=== PATIENT | male | born 1965 | race Caucasian/White ===

== ENCOUNTER 2018-07-04 08:09 | Observation (INO) ==
--- NOTE | 2018-06-23 11:59 | Anesthesiology Consultation ---
Date of Service June 23, 2018 Assessment & Plan (1) Encounter for pre-operative examination: Chart Review Chart Review: Acceptable Risk for Surgery and Patient seen in Pre Admission Testing Teaching & Discussion Instructed NPO after midnight before surgery, except medications with 15 cc of water. Medication instructions provided according to the PAT guidelines. History Surgery Operation Date: 07/04/18 11:40 Proposed Procedures p C5-C6 Cervical Disc Arthroplasty - Ismael Bradford DO Height/Weight Height: 5 ft 10 in Weight: 94.3 kg Allergies Allergy/AdvReac Type Severity Reaction Status Date / Time No Known Allergies Allergy Verified 06/21/18 15:39 Medications Home Medications Medication Instructions Recorded Confirmed Last Taken aspirin [Aspir-81] 81 mg PO DAILY 06/21/18 06/21/18 06/21/18 bupropion HCl [Wellbutrin SR] 150 mg PO BID 06/21/18 06/21/18 06/21/18 escitalopram oxalate [Lexapro] 10 mg PO QPM 06/21/18 06/21/18 06/20/18 gemfibrozil 600 mg PO BID 06/21/18 06/21/18 06/21/18 metformin 500 mg PO BID 06/21/18 06/21/18 06/21/18 omega 7-nyt-fve-fish oil [Fish Oil] 1 cap PO BID 06/21/18 06/21/18 06/21/18 rosuvastatin [Crestor] 20 mg PO QAM 06/21/18 06/21/18 06/21/18 semaglutide [Ozempic] 1 dose SUBCUT UD 06/21/18 06/21/18 06/17/18 Past Medical History Medical History Anxiety WITH LARGE CROWDS OR LOTS OF ACTIVITY Depression Diabetes Hernia Herniated cervical disc C5-6 High triglycerides Irregular bowel habits CONSTIPATION/DIARRHEA - PROBLEM FOR 20 YRS Spinal stenosis Past Family History Family History Other Family history of heart disease Past Surgical History Surgical History History of abdominal surgery x3 as child for tumor ages 5, 10 & 12 History of carpal tunnel surgery of right wrist History of cholecystectomy History of colonoscopy History of colostomy 1995 RESULT OF CONSTRUCTION ACCIDENT History of colostomy reversal History of lipoma BACK OF NECK Past Anesthesia History No Hx of Anesthesia Complications and No Family Hx of Anesthesia Complications History of PONV No Motion Sickness Screening History of Motion Sickness: No STOP BANG Total 4 Social History Smoking Status: Never smoker Do You Dip or Chew Tobacco: Yes (1 CAN EVERY 2 DAYS - ADVISED NPO) Hx Alcohol Use: No Hx Substance Use: No substance use type: does not use Exercise / Class Metabolic Activity II 4-5 Yardwork/Stairs/Walk up hill (mild SOB with stairs 2/2 deconditioning) Review of Systems Pt denies any recent chest pain, shortness of breath, palpitations, cough, fever or URI. Physical Exam Vital Signs BP: 120/82 P: 83bpm SPO2: 97% RA T: 98.2 R: 18 ENMT Mouth: no dental restorations, no chipped teeth and no loose teeth Thyromental Distance: < 3.5 Finger Breadths (3) Mallampati Class: II Neck normal visual inspection and + limited neck extension (mildly limited 2/2 pain) Respiratory normal respiratory effort Auscultation: lungs clear to auscultation bilaterally Cardiovascular Rate/Rhythm: regular rate and regular rhythm Heart Sounds: no murmur Vessels: no carotid bruit Testing Electrocardiogram Date: 06/23/18 Findings: + NSR @ (78) Chest X-Ray Date: 06/23/18 Findings: + NAD Laboratory Results 06/23/18 11:35 06/23/18 11:35 PT 9.9 Seconds (9.0-12.0) 06/23/18 11:35 INR 1.0 (0.9-1.1) 06/23/18 11:35 APTT 28.6 Seconds (21.0-31.0) 06/23/18 11:35
--- NOTE | 2018-06-23 12:03 | PAT Medication Instructions ---
Medication Instructions Date of Service June 23, 2018 Home Medications aspirin [Aspir-81] 81 mg PO DAILY bupropion HCl [Wellbutrin SR] 150 mg PO BID escitalopram oxalate [Lexapro] 10 mg PO QPM gemfibrozil 600 mg PO BID metformin 500 mg PO BID omega 6-rlx-avf-fish oil [Fish Oil] 1 cap PO BID rosuvastatin [Crestor] 20 mg PO QAM semaglutide [Ozempic] 1 dose SUBCUT UD Continue as directed semaglutide [Ozempic] 1 dose SUBCUT UD ASK your surgeon for instructions aspirin [Aspir-81] 81 mg PO DAILY STOP taking 2 weeks before surgery omega 0-rah-xrl-fish oil [Fish Oil] 1 cap PO BID If surgery is within 2 weeks, stop taking as soon as possible. STOP taking 24 hours before surgery gemfibrozil 600 mg PO BID DO NOT take the morning of surgery metformin 500 mg PO BID Take morning of surgery With a small sip of water, OTHERWISE NOTHING TO EAT OR DRINK AFTER MIDNIGHT: bupropion HCl [Wellbutrin SR] 150 mg PO BID rosuvastatin [Crestor] 20 mg PO QAM Take evening before surgery bupropion HCl [Wellbutrin SR] 150 mg PO BID escitalopram oxalate [Lexapro] 10 mg PO QPM metformin 500 mg PO BID Other Notes If you have any questions please call us at [phone] or [phone] or [phone] or [phone]
--- NOTE | 2018-06-23 12:28 | XRay Report ---
XR chest Pre-admission PA/Lat HISTORY: 52 years-old Male pat preoperative exam. No acute chest complaints COMPARISON: None available TECHNIQUE: PA and lateral views of the chest FINDINGS: Cardiac mediastinal and hilar silhouettes are within normal limits. No pneumothorax, pleural effusion , focal airspace consolidation or overt pulmonary edema. Bones of the chest appear grossly intact. IMPRESSION: No acute process. The above report was generated using voice recognition software. It may contain grammatical, syntax o r spelling errors. Electronically signed by: Diaz Jimenez M.D. 06/23/2018 12:27 PM
[2018-06-23 12:31] LABS: Basophils # (auto) 0.02 K/uL (0-0.2); Basophils % (auto) 0.3 %; Eosinophils # (auto) 0.14 K/uL (0-0.5); Eosinophils % (auto) 1.9 %; Hematocrit (blood only) 40.8 % (42-52); Hemoglobin 13.9 g/dL (14.0-18.0); Immature Granulocytes # (auto) 0.02 K/uL (0.00-0.02); Immature Granulocytes % (auto) 0.3 %; Lymphocytes # (auto) 2.38 K/uL (1.2-3.4); Lymphocytes % (auto) 33.1 %; Mean Corpuscular Hgb Conc 34.1 g/dL (32-36); Mean Corpuscular Volume 88.1 fL (80-100); Mean Platelet Volume 9.6 fL (7.4-10.4); Monocytes % (auto) 8.3 %; Neutrophils # (auto) 4.03 K/uL (1.4-6.5); Neutrophils % (auto) 56.1 %; Platelet Count 278 K/uL (130-400); RDW Coefficient of Variation 13.2 % (11.5-14.5); RDW Standard Deviation 42.1 fL (36.4-46.3); Red Blood Count 4.63 M/uL (4.7-6.1); White Blood Count 7.19 K/uL (4.8-10.8)
[2018-06-23 12:47] LABS: BUN Creatinine Ratio 17.7 (10-20); Creatinine Clr Calc Pharmacy 97.8 ml/min; Est GFR (African American) 114.5; Est GFR (Non-African American) 98.8; Potassium 4.2 mmol/L (3.5-5.1)
[2018-06-23 12:54] LABS: Partial Thromboplastin Ratio 1.1; Partial Thromboplastin Time 28.6 Seconds (21.0-31.0); Prothrombin Time 9.9 Seconds (9.0-12.0)
--- NOTE | 2018-07-01 15:05 | History and Physical Report ---
DATE OF ADMISSION: 07/04/2018 CHIEF COMPLAINT: Neck pain, arm pain, trapezius pain associated weakness to the upper extremities, progressive. Kvng is delightful, progressive cervical radiculopathy associated weakness. Works at [employer]. He is here for elective surgery. It is an anterior arthroplasty C5-C6 cervical spine. PAST MEDICAL HISTORY: Diabetes, anxiety, high cholesterol. No hypertension, COPD, or carcinoma. PAST SURGICAL HISTORY: Tumor resection, colonoscopy, neck surgery. ALLERGIES: Negative. FAMILY HISTORY: Diabetes, stroke. SOCIAL HISTORY: He is , 5 children. Rarely drinks. No tobacco. REVIEW OF SYSTEMS: Twelve system review negative fevers, sweats, chills. Ear, nose and throat negative. No chest pain, palpitations, asthma, wheezing. No nausea, vomiting, urgency, frequency. He does have diabetes. MEDICATIONS: Metformin, aspirin, fish oil, Wellbutrin, Lexapro, Crestor. PHYSICAL EXAMINATION: GENERAL: 5' 11", 218, in moderate distress. He has a significant difficulty with upper extremity. VITAL SIGNS: Blood pressure 130/80, pulse 80, respirations 16. LUNGS: Clear to auscultation. No rales, rhonchi, wheezing. ABDOMEN: Soft, nontender. CARDIAC: Normal S1, S2, no S3. LUNGS: Clear to auscultation. No rales, rhonchi, wheezing. UPPER EXTREMITIES: His upper extremity examination was impressive. He has a Spurling maneuver. He has Lhermitte sign. He has weakness, numbness and tingling, weakness of biceps function and triceps function, protection analyst strength as well. Absent reflexes, but no hyperreflexia. IMAGES: Demonstrate a large herniation C5-C6 cervical spine. PLAN: Anterior cervical disc arthroplasty C5-C6 cervical spine.
[~2018-07-04 08:09] MED LIST: CEFAZOLIN 2000MG 2,000 MG/15 ML SYR IV SCH; LR 15ML/HR IV SCH; LR 60ML/HR IV SCH; SODIUM CHLORIDE 0.9% 1000ML IV SCH
[2018-07-04] MEDS ORDERED: ePHEDrine sulfate 50 MG/ML AMP IV PRN ×2 (09:39→12:21)
[2018-07-04] MEDS ORDERED: ATROPINE SULFATE 0.1 MG/ML 10ML SYR IV PRN ×2 (09:39→12:21)
[2018-07-04] MEDS ORDERED: BUPIVACAINE/EPINEPHRINE 0.5% MPF 1:200,000 30 ML VIAL ONE (09:40)
[2018-07-04] MEDS ORDERED: THROMBIN FOR SOLN 20000 UNIT KIT ONE (09:41)
[2018-07-04] MEDS ORDERED: BACITRACIN INJ 50,000 UNIT VIAL ONE (09:41)
[2018-07-04] MEDS ORDERED: GELATIN SPONGE SZ 100 ONE (09:41)
[2018-07-04] MEDS ORDERED: PROPOFOL IV EMULSION 10 MG/ML 20 ML VIAL IV ONE (09:50)
[2018-07-04] MEDS ORDERED: MIDAZOLAM HCL 1 MG/ML 2ML VIAL ONE (09:50)
[2018-07-04] MEDS ORDERED: ROCURONIUM BROMIDE 10 MG/ML 5 ML VIAL ONE (09:50)
[2018-07-04] MEDS ORDERED: fentaNYL citrate 100 MCG/2 ML VIAL ONE ×3 (09:50→10:48)
--- NOTE | 2018-07-04 09:59 | History & Physical Bridge Note ---
Date of Service July 04, 2018 History & Physical Bridge Note I have examined the patient, reviewed the History & Physical and in the interval since the performance of the History & Physical I have noted the following changes of clinical significance: no changes noted
[2018-07-04] MEDS ORDERED: ONDANSETRON INJ 2 MG/ML 2 ML VIAL ONE (10:33)
[2018-07-04] MEDS ORDERED: DEXAMETHASONE SOD INJ 4 MG/ML VIAL ONE (10:33)
--- NOTE | 2018-07-04 11:33 | Post Operative Brief Note ---
Immediate Post Op Note v1 Date of Surgery July 04, 2018 Pre & Post Diagnosis Operation Date: 07/04/18 10:30 Pre-Op Diagnosis: Disc Herniation Post-Op Diagnosis: Disc Herniation Procedure Operation Date: 07/04/18 10:30 Actual Procedures p C5-C6 Cervical Disc Arthroplasty(Not Applicable) - Ismael Bradford DO Surgeon Ismael Bradford DO Educational Manager raheem Estimated Blood Loss 5 Findings Consistent with Post-Op Diagnosis Drains Jabari Drain
[2018-07-04] MEDS ORDERED: fentaNYL citrate 100 MCG/2 ML VIAL IV PRN (12:21)
[2018-07-04] MEDS ORDERED: LORazepam 0.5 MG/1 ML VIAL IV PRN (13:47)
[2018-07-04] MEDS ORDERED: OXYCODONE HCL IR 5 MG TAB (IMMEDIATE RELEASE) PO PRN (13:47)
[2018-07-04] MEDS ORDERED: NALOXONE HCL 0.4 MG/1 ML VIAL/CARP IV PRN (13:47)
[2018-07-04] MEDS ORDERED: RACEPINEPHRINE 2.25% NEBU SOLN 0.5 ML VIAL INH PRN (13:47)
[2018-07-04] MEDS ORDERED: MAGNESIUM HYDROXIDE SUSP 30 ML UDC PO PRN (13:47)
[2018-07-04] MEDS ORDERED: ONDANSETRON INJ 2 MG/ML 2 ML VIAL IV PRN (13:47)
[2018-07-04] MEDS ORDERED: SEMAGLUTIDE SQ SCH (13:47)
[2018-07-04] MEDS ORDERED: ACETAMINOPHEN 1,000 MG/100 ML VIAL IV PRN (13:47)
[2018-07-04] MEDS ORDERED: HYDROmorphone INJ 0.5 MG/0.5 ML SYR IV PRN (13:47)
[2018-07-04] MEDS ORDERED: PHARMACY GLYCEMIC MGMT CONSULT PRN (14:19)
--- NOTE | 2018-07-04 14:19 | Fluoroscopy Report ---
Cervical SPINE, INTRAOPERATIVE FLUOROSCOPY HISTORY: C5-C6 arthroplasty. FLUOROSCOPY TIME: 15 seconds. FINDINGS: Intraoperative fluoroscopy was provided for the cervical spine. 4 fluoroscopic spot images of the cervical spine demonstrate a C5-C6 disc spacer. The hardware appears in good position. IMPRESSION: Fluoroscopy provided for a C5-C6 arthroplasty. Electronically signed by: Solitario Lyn M.D. 07/04/2018 2:17 PM
[2018-07-04] MEDS: SODIUM CHLORIDE 0.9% 1000ML 1,000 ML IV SCH ×2 (14:34→22:45)
--- NOTE | 2018-07-04 15:05 | Pharmacy Report ---
Glycemic Control Consultation - Date of Service July 04, 2018 - Scope Scope: Glycemic Pharmacist consulted by Dr Carney on 07/04/18 for glycemic control and to write orders per [facility] inpatient glycemic control protocol - Objective Weight: 94.347 kg Accuchecks BSG (last 24hrs): 07/04/18 07/04/18 08:27 12:05 POC Glucose 125 H 118 H - Recent Pertinent Medications Outpatient Anti-diabetic Regimen: * Ozempic SC weekly, Metformin 500mg BIDM * A1c ordered for 07/05/18 Risk Factors for Insulin Resistance: * Steroids: IV DXM 8mg perioperatively * Recent Surgery: POD:0 * Diet:NPO - Assessment & Plan Assessment & Plan: ASSESSMENT: * Mr. Cleveland is a 52 yo M unknown to the pharmacy glycemic service. He is maintained on Ozempic and Metformin as an outpt. I was not able to find an A1C in his chart, so I am unsure of his degree of insulin resistance. * PMHx consistent with DM-II, HLD, COPD. * He was given 8mg IV DXM perioperatively. He is currently NPO. Most recent BSGs 125,118mg/dL PLAN FOR INPATIENT GLYCEMIC CONTROL: * Holding outpatient oral diabetes medications * Basal insulin * Lantus dose to be based on whether he is ordered a diet and future BSGs * Bolus insulin * NovoLog per scale ACHS or Q6hrs while NPO * Goal Range: Low 110 mg/dL - High 140 mg/dL * Correction Factor: 15 mg/dL/unit * Nutritional / Prandial insulin per carb ratio of 1 unit per 6 grams CHO consumed * Please note that the plan above was derived based on current level of insulin resistance and hospital stress. These recommendations are appropriate for inpatient admission only. Plan of care upon discharge will need to be reassessed to avoid potential outpatient hypo/hyperglycemia. Thank you.
--- NOTE | 2018-07-04 15:09 | Operative Report ---
DATE OF OPERATION: 07/04/2018 PREOPERATIVE DIAGNOSIS: Cord compression, cervical spine, C5-C6. POSTOPERATIVE DIAGNOSIS: Cord compression, cervical spine, C5-C6. PROCEDURE: Include anterior cervical disc arthroplasty, C5-C6. SURGEON: Ismael Bradford DO DYER HELPER: Marquis Carney PA-C. COMPLICATIONS: No complications. DESCRIPTION OF PROCEDURE: The patient was taken to the operating room, a general intubated anesthetic provided to the patient, kept supine, scrubbed, prepped and draped sterile. We made a transverse skin incision dissecting the soft tissue. It was a classic Kirkland-Maloney approach to the cervical spine. We got down to the C5-C6 interspace fairly readily. We took the longus colli off about 3 mm left to right. We incised the disc. We piecemealed all disc material. I was able to get back on to the nerve into the cord, receiving 2 or 3 free fragments. I perceived to be disc material off the nerve root. I believe the disc to be evacuated of any type of visible material. We then irrigated thoroughly. I also took off the cartilaginous surface off the anterior endplate of C6 and the dome underneath the 5 vertebrae. We then did series of trial, settled on the size #6, 17 x 15 cervical disc arthroplasty. The fit was in my opinion anatomic. We then irrigated, closed in layers over a Jabari drain. Sterile dressings applied. The patient returned to PACU stable. When we settled on the actual implant, we did countersink this implant approximately 2 mm. There was no breakage of implants or dislodgement. We also placed a disc under pressure. Sterile dressings applied. A collar applied. The patient returned to PACU improved, stable. No apparent complications. I attest to the content of the Intraoperative Record and any orders documented therein. Any exception s are noted below.
--- NOTE | 2018-07-04 15:21 | Anesthesiology Progress Note ---
Date of Service July 04, 2018 Anesthesia Post Procedure Vital Signs Vital Signs: Temp Pulse Pulse Pulse Resp BP BP 07/04/18 14:20 36.7 C 83 16 135/87 07/04/18 13:53 79 16 142/83 H 07/04/18 13:20 36.6 C 76 16 140/85 07/04/18 13:00 83 16 138/87 07/04/18 12:50 36.3 C L 78 16 148/91 H 07/04/18 12:40 80 16 144/89 H 07/04/18 12:30 86 16 143/78 H 07/04/18 12:20 80 15 136/93 07/04/18 12:10 83 13 145/87 H 07/04/18 12:00 86 13 137/88 07/04/18 11:50 88 14 138/83 07/04/18 11:43 36.6 C 96 H 20 148/86 H 07/04/18 08:44 36.6 C 80 18 143/89 H Pulse Ox 07/04/18 14:20 96 07/04/18 13:53 95 07/04/18 13:20 96 07/04/18 13:00 98 07/04/18 12:50 97 07/04/18 12:40 97 07/04/18 12:30 97 07/04/18 12:20 97 07/04/18 12:10 99 07/04/18 12:00 98 07/04/18 11:50 96 07/04/18 11:43 97 07/04/18 08:44 98 Pain Intensity Neck: Pain Intensity: 0 Notes Mental Status: alert / awake / arousable Patient Amnestic to Procedure: Yes Nausea / Vomiting: adequately controlled Pain: adequately controlled Airway Patency, RR, SpO2: stable & adequate BP & HR: stable & adequate Hydration State: stable & adequate Anesthetic Complications: no major complications apparent and Pt Satisfied with anesthetic care
[2018-07-04] MEDS ORDERED: INSULIN GLARGINE SOLOSTAR 100 UNITS/ML 3 ML PEN SC STA (15:51)
[2018-07-04] MEDS ORDERED: INSULIN ASPART 100 UNITS/ML 3 ML PEN SC SCH (18:00)
[2018-07-04] MEDS: CEFAZOLIN 2000MG 2,000 MG/15 ML SYR IV SCH (19:22)
[2018-07-04] MEDS ORDERED: Nursing to Pharmacy Communication ONE (20:38)
[2018-07-04] MEDS ORDERED: ESCITALOPRAM OXALATE 10 MG TAB PO SCH (21:00)
[2018-07-04] MEDS ORDERED: METFORMIN HCL 500 MG TAB PO SCH (21:00)
[2018-07-04] MEDS: BuPROPion SR 150 MG TABCR PO SCH (21:28)
[2018-07-04] MEDS: GEMFIBROZIL 600 MG TAB PO SCH (21:28)
[2018-07-04] MEDS: OMEGA-3 (PURIFIED FISH OIL) 1 GM CAP PO SCH (21:28)
[2018-07-04] MEDS: DOCUSATE SODIUM 100 MG CAP PO SCH (21:28)
[2018-07-04] MEDS: INSULIN ASPART 100 UNITS/ML 3 ML PEN SC SCH (21:29)
[2018-07-04] MEDS ORDERED: INSULIN GLARGINE SOLOSTAR 100 UNITS/ML 3 ML PEN SC ONE (22:00)
[2018-07-05] MEDS: CEFAZOLIN 2000MG 2,000 MG/15 ML SYR IV SCH ×2 (02:41→09:29)
[2018-07-05 07:14] LABS: Estimated Average Glucose 140 mg/dl; Hemoglobin A1C 6.5 % (4.5-5.6)
--- NOTE | 2018-07-05 08:14 | Anesthesiology Progress Note ---
Date of Service July 05, 2018 Anesthesia Post Procedure Vital Signs Vital Signs: Temp Pulse Pulse Pulse Resp BP BP 07/05/18 07:39 82 18 07/05/18 06:15 36.7 C 80 18 148/92 H 07/05/18 04:20 36.8 C 81 16 154/98 H 07/05/18 04:00 80 16 07/05/18 02:20 37 C 83 18 143/88 H 07/05/18 00:20 36.7 C 80 18 147/85 H 07/04/18 23:47 85 14 07/04/18 22:52 36.4 C L 85 20 144/85 H 07/04/18 22:20 07/04/18 21:20 36.5 C 87 18 144/87 H 07/04/18 20:00 102 H 16 07/04/18 19:04 36.9 C 94 H 17 142/81 H 07/04/18 16:25 36.8 C 90 17 151/81 H 07/04/18 15:28 85 18 07/04/18 15:21 36.6 C 86 18 134/79 07/04/18 14:20 36.7 C 83 16 135/87 07/04/18 13:53 79 16 142/83 H 07/04/18 13:20 36.6 C 76 16 140/85 07/04/18 13:00 83 16 138/87 07/04/18 12:50 36.3 C L 78 16 148/91 H 07/04/18 12:40 80 16 144/89 H 07/04/18 12:30 86 16 143/78 H 07/04/18 12:20 80 15 136/93 07/04/18 12:10 83 13 145/87 H 07/04/18 12:00 86 13 137/88 07/04/18 11:50 88 14 138/83 07/04/18 11:43 36.6 C 96 H 20 148/86 H 07/04/18 08:44 36.6 C 80 18 143/89 H Pulse Ox Pulse Ox 07/05/18 07:39 95 07/05/18 06:15 96 07/05/18 04:20 95 07/05/18 04:00 93 07/05/18 02:20 95 07/05/18 00:20 96 07/04/18 23:47 95 07/04/18 22:52 95 07/04/18 22:20 94 07/04/18 21:20 93 07/04/18 20:00 95 07/04/18 19:04 93 07/04/18 16:25 92 07/04/18 15:28 96 07/04/18 15:21 94 07/04/18 14:20 96 07/04/18 13:53 95 07/04/18 13:20 96 07/04/18 13:00 98 07/04/18 12:50 97 07/04/18 12:40 97 07/04/18 12:30 97 07/04/18 12:20 97 07/04/18 12:10 99 07/04/18 12:00 98 07/04/18 11:50 96 07/04/18 11:43 97 07/04/18 08:44 98 Pain Intensity Neck: Pain Intensity: 2 Notes Mental Status: alert / awake / arousable Patient Amnestic to Procedure: Yes Nausea / Vomiting: adequately controlled Pain: adequately controlled Airway Patency, RR, SpO2: stable & adequate BP & HR: stable & adequate Hydration State: stable & adequate Anesthetic Complications: no major complications apparent
[2018-07-05] MEDS: OMEGA-3 (PURIFIED FISH OIL) 1 GM CAP PO SCH (08:25)
[2018-07-05] MEDS: GEMFIBROZIL 600 MG TAB PO SCH (08:25)
[2018-07-05] MEDS: DOCUSATE SODIUM 100 MG CAP PO SCH (08:25)
[2018-07-05] MEDS: BuPROPion SR 150 MG TABCR PO SCH (08:26)
[2018-07-05] MEDS: INSULIN ASPART 100 UNITS/ML 3 ML PEN SC SCH (08:33)
[2018-07-05] MEDS ORDERED: ROSUVASTATIN CALCIUM 20 MG TAB PO SCH (09:00)
[2018-07-05] MEDS ORDERED: ASPIRIN 81 MG ECTAB PO SCH (09:00)
--- NOTE | 2018-07-05 11:32 | Discharge Summary ---
HOSPITAL COURSE: He is alert, oriented, minimal complaints, taking p.o. Strength is intact, improved and 0 pain. Wound clean, dry. No change in mental status. ASSESSMENT: Status post disc arthroplasty. PLAN: Dressing change and discharged home. He has instruction, precautions, education. He has prescriptions on his chart and he has a followup appointment.
[2018-07-06] MEDS ORDERED: BISACODYL 5 MG TABEC PO PRN (11:49)
== END 2018-07-05 10:57 | disposition home or self-care (01) ==
LOC: 3E 08:09 → ASU 08:09